=== PATIENT | male | born 1955 ===

== ENCOUNTER 2019-04-25 07:41 | Day surgery (SDC) | payer BC, SELFPAY ==
--- NOTE | 2019-04-25 07:06 | COLE_ITS ---
Date of service: 04/25/19 Time of Service: 09: Colonoscopy Report Date of procedure: 04/25/19 Pre-op diagnosis general: Colon Cancer Screening Post-op diagnosis procedure note: same (and small internal hemorrhoids) Procedure: Colonoscopy Surgeon: Trinh Walton Anesthesia proc note operative: other (General/ ASA 2/kiran Her CRNA) Estimated blood loss (mL): 0 Pathology: none sent Complications: None Disposition: same day Indications: Mr. Bennett is a pleasant 63 year old male who was seen in the office for a screening colonoscopy. He has no family history of colon cancer. He had one previous colonoscopy that was normal. Risks, benefits and complications have been reviewed. Complications include but are not limited to bleeding, pain, perforation, missed small lesion/polyp, sore throat, aspiration and adverse r eaction to the medications. Questions were entertained and answered to their satisfaction and they wished to proceed. No guarantees were given or implied. [place] Prep: Miralax/Dulcolax Procedure Start Time: : Procedure End Time: : Retraction Time: 14 Findings: Normal colon Small Grade 1 internal hemorrhoids Procedure Description: After informed consent was obtained the patient was taken to the procedure room and placed in a left decubitous position. Monitors were applied and a time out was done. The patients name, date of , procedure, allergies to medications and metal in their body was reviewed. The patient was then sedated. Once sedated and comfortable a rectal exam was done. External exam was normal. Internal exam revealed a normal sphincter tone and no palpable masses. The prostate felt smooth. The scope was then introduced and retro-flexed. Grade 1 internal hemorrhoids were identified. There were no polyps and no masses on retro-flexion. The scope was then advanced to the cecum without difficulty. The TI and appendiceal orifice were identified. The prep was good. The scope was then slowly retracted over 14 minutes back into the rectum. There were no polyps or diverticula. The scope was removed and the patient was woken up and taken back to Same day surgery in stable condition. The patient tolerated the procedure well and there were no immediate complica tions. Follow up: The patient should follow up in 10 years unless they develop changes in bowel habits or other new gastrointestinal complaints.
--- NOTE | 2019-04-25 07:13 | PDOC.DSDIS_ITS ---
Discharge Plan Disposition Patient Disposition: HOME Condition: Good Discharge Details Reason For Visit: Colon Cancer Screening Attending Provider: Trinh Walton Primary Care Provider: Puja Daniels Home Meds and New Rx's Prescriptions: Continued One-Per-Day [place]-3 1 EACH capsule,delayed release(DR/EC) 1 ea PO DAILY PRNRF: 0 cholecalciferol (vitamin D3) [Vitamin D3] 2,000 UNIT capsule 2,000 unit PO DAILY RF: 0 Discontinued polyethylene glycol 3350 17 gram/dose powder 238 g PO ONCE Qty: 238 RF: 0 bisacodyl [Dulcolax (bisacodyl)] 5 mg tablet,delayed release (DR/EC) 5 mg PO ONCE Qty: 4 RF: 0 Discharge Instructions Instructions: Colonoscopy (GEN), Hemorrhoids (ED) Additional Instructions: Findings: Small hemorrhoids Follow up: 10 years Please call if you develop: fevers >101.5 Nausea or Vomiting Abdominal pain that is not transient DAY SURGERY UNIT POST COLONOSCOPY INSTRUCTIONS 1. Because there will be medication in your system for the next 24 hours, you may feel a little sleepy. Your coordination will be affected. Therefore: a. Do not drive or operate dangerous equipment for 24 hours. b. Do not drink alcohol beverages for 24 hours (not even beer). c. Plan to go home and rest for the day. 2. Generally there are no restrictions on your activity after a day or so has gone by, but you may feel a bit fatigued for a few days. 3 After you arrive home you may have a light meal and return to a normal diet as you can tolerate it without feeling sick to your stomach. 4. After surgery, you may feel pain or discomfort. This should be only transient, but if it persists please contact your doctor. 5. If there are any questions regarding the findings of your procedure, please feel free to contact your doctor. 6. If you are unable to contact your doctor with a problem, contact the hospital at [phone]. 7. Continue all your regular medications unless directed otherwise. I understand the above instructions and have no questions. Signature of Patient or Responsible Adult Escort Date/Time Name of Responsible Adult Escort Signature of Nurse Date/Time Activity:: Activity as Tolerated Diet:: As Tolerated Discharge Orders Discharge Orders: Discharge Order (Routine); Ordered 04/25/19 Ordered By: Trinh Walton DS: Diagnosis Discharge Diagnosis (1) History of colonoscopy: Status: Chronic
[2019-04-25 08:20] VITALS: BP 118/84; PULSE 78; RESP 16; TEMP 36.3; O2SAT 99
[2019-04-25] MEDS: Lactated Ringers 1,000 ML 80 ML IV (08:46)
[2019-04-25] MEDS: Lidocaine 2% Pres-Free 5 ML VIAL (09:00)
[2019-04-25] MEDS: PROPOFOL 500 MG/50 ML BTL 41.4 MG (09:00)
[2019-04-25 09:40] VITALS: PULSE 64; RESP 20; O2SAT 95
[2019-04-25 09:53] VITALS: BP 102/62; PULSE 63; RESP 18; TEMP 36.2; O2SAT 98
== END 2019-04-25 11:35 | disposition home or self-care (01) ==
PROVIDERS: PCP Student in an Organized Health Care Education/Training Program; Visit Provider Surgery
PROC: 0DJD8ZZ Inspection of Lower Intestinal Tract, Via Natural or Artificial Opening Endoscopic (ICD-10-PCS; CPT 45378; principal; 2019-04-25 09:00)
DX: Z12.11 Encounter for screening for malignant neoplasm of colon (principal); K64.0 First degree hemorrhoids
CPT/HCPCS: 45378

== ENCOUNTER 2020-02-13 03:31 | Outpatient (CLI) | payer BC, SELFPAY ==
[2020-02-13 08:23] LABS: ALT 31 U/L (16-63); AST 18 U/L (15-37); Albumin 3.7 g/dL (3.4-5.0); Alkaline Phosphatase 114 U/L (46-116); Anion Gap 6.7 mmol/L (3-11); BUN 18 mg/dL (7-18); Bilirubin, Total 0.7 mg/dL (0.2-1.0); CO2 29.3 mmol/L (21.0-32.0); CREATININE 1.08 mg/dL (0.70-1.30); Calcium 8.7 mg/dL (8.5-10.1); Calculated LDL 106 mg/dL (<100); Chloride 107 mmol/L (98-107); Cholesterol 180 mg/dL (<200); Glucose 95 mg/dL (74-106); HDL Cholesterol 58 mg/dL (40-60); Potassium 4.4 mmol/L (3.5-5.1); Sodium 143 mmol/L (136-145); Total Protein 6.6 g/dL (6.4-8.2); Triglyceride 80 mg/dL (<150)
== END 2020-02-13 03:51 ==
PROVIDERS: PCP Student in an Organized Health Care Education/Training Program; Visit Provider Student in an Organized Health Care Education/Training Program
DX: Z13.220 Encounter for screening for lipoid disorders (principal); Z82.49 Family history of ischemic heart disease and other diseases of the circulatory system; G43.109 Migraine with aura, not intractable, without status migrainosus; R03.0 Elevated blood-pressure reading, without diagnosis of hypertension; Z00.00 Encounter for general adult medical examination without abnormal findings; E86.0 Dehydration
CPT/HCPCS: 36415; 80053; 80061

== ENCOUNTER 2020-06-04 19:54 | Outpatient (REF) | payer BC, SELFPAY ==
[2020-06-05 17:59] LABS: PSA, Screening 1.7 ng/mL (0.0-4.5)
== END 2020-06-04 20:14 ==
LOC: LBN 19:54
PROVIDERS: PCP Student in an Organized Health Care Education/Training Program; Visit Provider Urology
DX: Z12.5 Encounter for screening for malignant neoplasm of prostate (principal)
CPT/HCPCS: 84153

== ENCOUNTER 2021-06-17 03:36 | Outpatient (CLI) | payer BC, SELFPAY ==
[2021-06-17 22:32] LABS: PSA, Screening 1.8 ng/mL (0.0-4.5)
== END 2021-06-17 03:37 | disposition home or self-care (01) ==
LOC: LBO 03:36
PROVIDERS: PCP Student in an Organized Health Care Education/Training Program; Visit Provider Urology
DX: Z12.5 Encounter for screening for malignant neoplasm of prostate (principal)
CPT/HCPCS: 36415; 84153

== ENCOUNTER 2022-06-11 02:29 | Outpatient (CLI) | payer BC, SELFPAY ==
[2022-06-11 16:13] LABS: BUN 23 mg/dL (7-18); CREATININE 1.1 mg/dL (0.70-1.30); Calcium 8.4 mg/dL (8.5-10.1); Calculated LDL 84 mg/dL (<100); Chloride 106 mmol/L (98-107); Cholesterol 165 mg/dL (<200); Estimated GFR 74.96 (mL/min/1.73m2); Glucose 110 mg/dL (74-106); HDL Cholesterol 48 mg/dL (40-60); Potassium 3.8 mmol/L (3.5-5.1); Sodium 139 mmol/L (136-145); Triglyceride 168 mg/dL (<150)
[2022-06-11 22:33] LABS: PSA, Screening 1.7 ng/mL (<=4.5)
== END 2022-06-11 02:30 | disposition home or self-care (01) ==
LOC: LBO 02:29
PROVIDERS: Urology; PCP Student in an Organized Health Care Education/Training Program; Visit Provider Student in an Organized Health Care Education/Training Program
DX: N40.1 Benign prostatic hyperplasia with lower urinary tract symptoms (principal); Z13.1 Encounter for screening for diabetes mellitus; Z13.220 Encounter for screening for lipoid disorders; Z12.5 Encounter for screening for malignant neoplasm of prostate
CPT/HCPCS: 36415; 80048; 80061; 84153

== ENCOUNTER 2022-09-16 09:37 | Outpatient (CLI) | payer BC, SELFPAY ==
[2022-09-21 13:27] LABS: Testosterone, Total 517 ng/dL (240-950)
== END 2022-09-16 09:38 | disposition home or self-care (01) ==
LOC: LBO 09:37
PROVIDERS: PCP Student in an Organized Health Care Education/Training Program; Visit Provider Urology
DX: N40.1 Benign prostatic hyperplasia with lower urinary tract symptoms (principal); N50.0 Atrophy of testis
CPT/HCPCS: 36415; 84403

== ENCOUNTER 2023-06-02 02:53 | Outpatient (CLI) | payer BC, SELFPAY ==
[2023-06-02 15:10] LABS: Anion Gap 9.6 mmol/L (3-11); BUN 16 mg/dL (7-18); CO2 22.4 mmol/L (21.0-32.0); CREATININE 1.1 mg/dL (0.70-1.30); Calcium 8.8 mg/dL (8.5-10.1); Calculated LDL 97 mg/dL (<100); Chloride 105 mmol/L (98-107); Cholesterol 173 mg/dL (<200); Glucose 95 mg/dL (74-106); HDL Cholesterol 58 mg/dL (40-60); Potassium 3.7 mmol/L (3.5-5.1); Sodium 137 mmol/L (136-145); Triglyceride 90 mg/dL (<150)
[2023-06-02 17:04] LABS: Vitamin D 25 Total 53.1 ng/mL (30-100)
== END 2023-06-02 02:54 | disposition home or self-care (01) ==
LOC: LBO 02:53
PROVIDERS: PCP Student in an Organized Health Care Education/Training Program; Visit Provider Student in an Organized Health Care Education/Training Program
DX: E55.9 Vitamin D deficiency, unspecified (principal); E86.0 Dehydration; Z13.220 Encounter for screening for lipoid disorders
CPT/HCPCS: 36415; 80048; 80061; 82306

== ENCOUNTER 2023-06-08 18:31 | Outpatient (CLI) | payer BC, SELFPAY ==
[2023-06-08 23:06] LABS: PSA, Diagnostic 1.8 ng/mL (<=4.5)
== END 2023-06-08 18:32 | disposition home or self-care (01) ==
LOC: LBO 18:31
PROVIDERS: PCP Student in an Organized Health Care Education/Training Program; Visit Provider Urology
DX: N40.1 Benign prostatic hyperplasia with lower urinary tract symptoms (principal)
CPT/HCPCS: 36415; 84153

== ENCOUNTER 2024-04-26 00:56 | Outpatient (CLI) | payer BC, SELFPAY ==
--- NOTE | 2024-04-26 08:30 | DI.RAD_ITS ---
Exam(s) XR THUMB LT EXAM: XR THUMB LT CLINICAL HISTORY: eval joint space, bony pathology,bilat thumb pain,gamekeepers thumb,m79.645. TECHNIQUE: 2D digital imaging was performed. Three views. COMPARISON: None. FINDINGS: BONES: No acute fracture is present. No bony destructive lesion is seen. JOINTS: No dislocation present. 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 Per iarticular spurring. Subchondral cyst formation. Mild degenerative changes at the interphalangeal j oint and metacarpophalangeal joint. SOFT TISSUE: Normal. 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 DATA REPOSITORY: RADIATION DOSE DELIVERED:
--- NOTE | 2024-04-26 08:30 | DI.RAD_ITS ---
Exam(s) XR THUMB RT EXAM: XR THUMB RT CLINICAL HISTORY: eval joint space, bony pathology,bilat thumb pain, gamekeepers thumb,m79.64. TECHNIQUE: 2D digital imaging was performed. Three views. COMPARISON: CR XR THUMB LT from 04/26/2024 FINDINGS: BONES: No acute fracture is present. No bony destructive lesion is seen. JOINTS: No dislocation present. Moderate degenerative changes at the 1st carpal metacarpal joint. M ild degenerative changes at the metacarpal phalangeal joint and interphalangeal joint. SOFT TISSUE: Normal. IMPRESSION: Degenerative changes. DATA REPOSITORY: RADIATION DOSE DELIVERED:
--- NOTE | 2024-04-26 08:30 | DI.US_ITS ---
Exam(s) US SOFT TISS EXTREMITY/GROIN EXAM: US SOFT TISS EXTREMITY/GROIN CLINICAL HISTORY: possible acute hernia - with Hx hernia repair,k40.90,z98.890. TECHNIQUE: Ultrasound was performed using standard protocol. COMPARISON: US US SOFT TISS EXTREMITY/GROIN from 04/14/2024 FINDINGS: Sonographic assessment utilizing grayscale and color Doppler imaging was performed and targeted to th e area of clinical concern. There is an area of shadowing which could represent mash related to prior hernia repair. No definite recurrence hernia. IMPRESSION: No definite current heart recurrence hernia. The area is difficult to evaluate due to shadowing. A CT could be performed for further evaluation if indicated. DATA REPOSITORY:
== END 2024-04-26 01:16 ==
LOC: DI 00:57
PROVIDERS: PCP Student in an Organized Health Care Education/Training Program; Visit Provider Student in an Organized Health Care Education/Training Program
DX: S63.642A Sprain of metacarpophalangeal joint of left thumb, initial encounter; S63.641A Sprain of metacarpophalangeal joint of right thumb, initial encounter; X58.XXXA Exposure to other specified factors, initial encounter
CPT/HCPCS: 76882; 73140

== ENCOUNTER 2024-05-22 03:31 | Outpatient (CLI) | payer BC, SELFPAY ==
--- NOTE | 2024-05-22 09:00 | DI.RAD_ITS ---
Exam(s) XR FINGER LT RING EXAM: XR FINGER LT RING CLINICAL HISTORY: evaluate for bony path before ORTHO, LT TRIGGER FINGER, M65.30, Z87.39. TECHNIQUE: 2D digital imaging was performed. Three views. COMPARISON: None. FINDINGS: BONES: No acute fracture is present. No bony destructive lesion is seen. Incidental bone island prox imal phalanx of ring finger. JOINTS: No dislocation present. Severe degenerative changes at 1st carpal metacarpal joint. Minimal degenerative changes of the interphalangeal joints of the ring finger. SOFT TISSUE: Normal. IMPRESSION: No acute abnormality. DATA REPOSITORY: RADIATION DOSE DELIVERED:
--- NOTE | 2024-05-22 09:00 | DI.RAD_ITS ---
Exam(s) XR FINGER RT MIDDLE EXAM: XR FINGER RT MIDDLE CLINICAL HISTORY: evaluate for bony path before ORTHO, trigger finger rt hand, M65.30, Z87.39. TECHNIQUE: 2D digital imaging was performed. Three views. COMPARISON: CR XR FINGER LT RING from 05/22/2024 FINDINGS: BONES: No acute fracture is present. No bony destructive lesion is seen. JOINTS: No dislocation present. Moderate degenerative changes at 1st carpal metacarpal joint. Mild degenerative changes at distal interphalangeal joint of the middle finger. SOFT TISSUE: Normal. IMPRESSION: Iqvf-yn-hzixdumv degenerative changes. DATA REPOSITORY: RADIATION DOSE DELIVERED:
== END 2024-05-22 03:51 ==
PROVIDERS: PCP Student in an Organized Health Care Education/Training Program; Visit Provider Student in an Organized Health Care Education/Training Program
DX: M18.0 Bilateral primary osteoarthritis of first carpometacarpal joints (principal); Z87.39 Personal history of other diseases of the musculoskeletal system and connective tissue
CPT/HCPCS: 73140

== ENCOUNTER 2024-06-08 01:19 | Outpatient (CLI) | payer BC, SELFPAY ==
--- NOTE | 2024-06-08 08:00 | DI.MRI_ITS ---
Exam(s) MR UPPER EXTREMITY LT WO EXAM: MR UPPER EXTREMITY LT WO CLINICAL HISTORY: eval joint space, lig/tendon,? tear,OA THUMB,GAMEKEEPERS THUMB,THUMB PAIN. TECHNIQUE: Multiplanar multisequence MRI was performed. COMPARISON: CR XR FINGER RT MIDDLE from 05/22/2024 CR XR FINGER LT RING from 05/22/2024 FINDINGS: Severe degenerative changes are noted at the 1st carpal metacarpal joint. There are multiple subcho ndral cysts on both sides of the joint. Marrow signal is otherwise unremarkable. No evidence of ligament or tendon tear. No joint effusion. Muscles and soft tissues are unremarkabl e. 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 No evidence of ulnar collateral lig ament injury at the 1st metacarpophalangeal joint. DATA REPOSITORY:
== END 2024-06-08 01:39 ==
LOC: DI 01:19
PROVIDERS: PCP Student in an Organized Health Care Education/Training Program; Visit Provider Student in an Organized Health Care Education/Training Program
DX: S63.642A Sprain of metacarpophalangeal joint of left thumb, initial encounter (principal); X58.XXXA Exposure to other specified factors, initial encounter
CPT/HCPCS: 73218

== ENCOUNTER 2024-11-10 00:54 | Outpatient (CLI) | payer BC, SELFPAY ==
[2024-11-10 12:31] LABS: BUN 17 mg/dL (7-18); CREATININE 1.2 mg/dL (0.70-1.30); Calcium 8.7 mg/dL (8.5-10.1); Calculated LDL 91 mg/dL (<100); Chloride 108 mmol/L (98-107); Cholesterol 188 mg/dL (<200); Estimated GFR 66.28 (mL/min/1.73m2); Glucose 99 mg/dL (74-106); HDL Cholesterol 56 mg/dL (>or=40); Potassium 4.4 mmol/L (3.5-5.1); Sodium 143 mmol/L (136-145); Triglyceride 208 mg/dL (<150)
[2024-11-10 18:25] LABS: PSA, Screening 1.7 ng/mL (<=4.5)
== END 2024-11-10 00:55 | disposition home or self-care (01) ==
LOC: LOS 00:54
PROVIDERS: PCP Family Medicine; Visit Provider Family Medicine
DX: Z13.1 Encounter for screening for diabetes mellitus (principal); Z12.5 Encounter for screening for malignant neoplasm of prostate; Z13.6 Encounter for screening for cardiovascular disorders
CPT/HCPCS: 36415; 80048; 80061; 84153

== ENCOUNTER 2024-11-24 13:29 | Outpatient (CLI) | payer BC, SELFPAY ==
--- NOTE | 2024-11-24 13:15 | RT.EKG_ITS ---
APPROVED REPORT Exam: Resting ECG Reason for Exam: Atrial fibrulation Patient Location: O HR:71 bpm ECG Measurements Heart Rate 71 AXIS SD [id number] P [id number] QRSd 85 QRS -23 QT 402 T -7 QTc 437 Conclusion Atrial fibrillation...V-rate 61- 82, irreg A-activity Poor R wave progression Borderline low voltage, extremity leads...all extremity leads <0.6mV
== END 2024-11-24 13:30 | disposition home or self-care (01) ==
LOC: DI.CM 13:30
PROVIDERS: PCP Family Medicine; Visit Provider Family Medicine
DX: I48.91 Unspecified atrial fibrillation (principal)
CPT/HCPCS: 93010

== ENCOUNTER 2024-11-30 13:28 | Outpatient (RCR) | payer BC, SELFPAY | END 2024-12-04 23:59 | disposition home or self-care (01) | LOC: CARDOPNVT 13:28 | PROVIDERS: PCP Family Medicine; Visit Provider Internal Medicine Cardiovascular Disease | DX: I48.91 Unspecified atrial fibrillation (principal) | CPT/HCPCS: 93225; 93226 ==

== ENCOUNTER 2025-01-02 00:15 | Outpatient (CLI) | payer BC, SELFPAY ==
--- NOTE | 2025-01-02 07:30 | DI.US_ITS ---
APPROVED REPORT EXAM: Comprehensive 2D, Doppler, and color-flow Echocardiogram Patient Location: Out-Patient Substation Manager: Kiko Kaur RDCS (AE) Indications: Afib seen on preop monitor Other Information Study Quality: Adequate Conclusion Normal left ventricular wall thickness and chamber size. Ejection fraction is 60%. Wall motion is n ormal Normal right ventricular size and function Left atrium is severely dilated. Right atrium is mildly dilated Trileaflet aortic valve with mild regurgitation Normal mitral valve with mild regurgitation Estimated right ventricular systolic pressure is 31 mmHg Wall motion Left Ventricle The left ventricle is normal size. The left ventricular systolic function is normal. The left ventric ular ejection fraction is within the normal range. There is normal left ventricular wall thickness. T here is normal LV segmental wall motion. There is no ventricular septal defect visualized. LVEF is 60 %. Right Ventricle The right ventricle is normal size. The right ventricular systolic function is normal. Atria Left atrium is severely dilated. Right atrium is mildly dilated. The interatrial septum is intact wit h no evidence for an atrial septal defect. Aortic Valve The aortic valve is normal in structure. Aortic valve is trileaflet. There is no aortic valvular sten osis. Mild aortic regurgitation. Mitral Valve The mitral valve is normal in structure. No evidence of mitral valve stenosis. Mild mitral regurgitat ion. Tricuspid Valve The tricuspid valve is normal in structure. There is no tricuspid valve stenosis. Trace to mild tricu spid regurgitation. The RVSP is 31.5 mmHg. Pulmonic Valve The pulmonary valve is normal in structure. There is no pulmonic valvular stenosis. There is no pulmo zhou valvular regurgitation. Great Vessels The aortic root is normal in size. The ascending aorta is normal in size. Aortic arch is normal in ca liber. IVC is normal in size and collapses >50% with inspiration. Pericardium There is no pericardial effusion. 2D Dimensions IVSD d PLAX 0.78 cm M: 0.6-1.2 Ao Root d 2.92 cm M: 3.1 - 3.7 LVPW d PLAX 0.81 cm M: 0.6 - 1.2 Ao Asc Diam d 3.14 cm M: 2.6 - 3.4 LVID d PLAX 4.58 cm M: 4.2 - 5.8 LVDs 3.13 cm M: 2.5 - 4.0 LV EF Teichholz 59.8 % FS 31.72 % LV EDV (Teich) 96.6 mL LV ESV (Teich) 38.8 mL Stroke Vol Index (Teich) 27.50 M-Mode TAPSE 1.68 cm (M/F) >1.7 Auto EF LV EDV A4C 81.0 mL LV EDV A2C LV EDV BP LV ESV A4C 32.7 mL LV ESV A2C LV ESV BP LVEF(%) A4C 59.7 % LVEF(%) A2C LVEF(%) BP LV SV A4C 48.3 ml LV SV A2C LV SV BP LV CO A4C 3.1 L/min LV CO A2C LV CO BP HR A4C 63.61 BPM HR A2C LV EDV Index (BP) LV Volumes - Method of Disks ([place]'s) Single Plane 2D LV Volumes Biplane 2D LV Volumes LV EDV A2C 72.4 mL LV EDV BP Index LV ESV A2C 28.7 mL SV BP LVEF(%) A2C 60.4 % SV Index LA Volume LA Length A4C 7.0 cm LA Length A2C 7.0 cm LA Area A4C s 29.45 cm2 LA Area A2C s 27.95 cm2 LA Vol A4C A-L 104.50 mL LA Vol A2C A-L 95.10 mL LA Vol Biplane A-L 100.2 mL LA Vol/BSA A4C A-L LA Vol/BSA A2C A-L LA Vol/BSA BP A-L 47.7 mL/m2 LA Vol A4C MOD 99.1 mL LA Vol A2C MOD 88.6 mL LA Vol BP MOD 93.4 mL RA Volume RA Area A4C 16.0 cm2 RA ESV A4C (A-L) 36.2mL RA Vol/BSA A4C A-L RA Length A4C 6.0 cm RA ESV A4C (MOD) 37.3mL LV Diastology MV E' medial 0.116 (>0.07 m/s) MV E Vmax 0.96 (0.4-1.3 m/s) MV E/E' MED 8.34 (<14) MV E' lateral 0.141 (>0.1 m/s) MV E/E' LAT 6.84 (<14) MV E' Average 0.128 m/s MV E/E'(average) 7.52 Aortic Valve AoV Vmax 1.48 m/s LVOT Vmax 0.98 m/s AoV Peak Grad 8.7 mmHg LVOT Peak Grad 3.9 mmHg AoV Area (Vmax) 2.18 cm2 LVOT VTI 0.188 m AoV VTI 0.279 m LVOT Mean Grad 1.9 mmHg AoV Mean Mathew. 0.99 m/s LVOT SV 61.43 mL AoV Mean Grad 4.5 mmHg LVOT Diam s 2.00 cm AoV Area (VTI) 2.20 cm2 AV Regurg Peak Gr. 8.72 mmHg Velocity Ratio 0.66 Mitral Valve MV DT 130 (160-240 msec) Pulmonary Valve PV Vmax 1.12 (0.5-1.5 m/s) RVOT Vmax 0.52 m/s PV Peak Grad 5.0 mmHg RVOT Peak Gr. 1.1 mmHg PV Mean Mathew 0.81 m/s RVOT VTI 0.112 m PV Mean Grad 2.9 mmHg RVOT Mean Gr. 0.6 mmHg Tricuspid Valve RA Pressure 3.00 mmHg TR Vmax 2.67 m/s TV S' 0.12 m/s TR Peak Grad 28.5 mmHg RVSP (TR) 31.5 mmHg
== END 2025-01-02 00:35 ==
LOC: DI 00:15
PROVIDERS: PCP Family Medicine; Visit Provider Internal Medicine Cardiovascular Disease
DX: I48.91 Unspecified atrial fibrillation (principal); I35.0 Nonrheumatic aortic (valve) stenosis
CPT/HCPCS: 93306

== ENCOUNTER 2025-01-11 00:12 | Outpatient (CLI) | payer BC, SELFPAY ==
--- NOTE | 2025-01-11 06:00 | ETT_ITS ---
APPROVED REPORT Exam: Exercise Treadmill Patient Location: Out-Patient Room/Bed: Ordering Provider:DULCE COLES, Contact Number: [phone] BMI: 28.40 Baseline Rhythm: Atrial Fibrillation Comment: Occasional PVC's Indications: Atrial fibrillation, HTN, Medical History Medical History: HTN, afib (dx. 11/28), BPH, peyronies disease Cardiac Medications: Losartan, tadalafil Allergies: NKA Cardiac Risk Factors: Family hx, HTN Previous Cardiac Procedures: None Pretest Chest Pain Characteristics: None Exercise History: Physically active Physical Disabilities: None Lung Sounds: Clear to auscultation Heart Sounds: Irregular Stress Test Details Test: Exercise stress testing was performed using a Kofi protocol. Rest Stress HR Resting HR Supine: 62 bpm Max Heart Rate (APMHR): 153 bpm Resting HR Standin bpm Target HR (85% APMHR): 130 bpm Max HR Achieved: 158 bpm % of APMHR: 103 Recovery HR: 73 bpm HR response to stress: Normal HR response to stress BP Resting BP Supine: 132/82 mmHg Resting BP Standin/90 mmHg Max BP: 194/90 mmHg Recovery BP: 138/80 mmHg BP response to stress: Normal blood pressure response to stress. ECG Resting ECG: Atrial Fibrillation Ectopy: Occasional PVC's Stress ECG: Atrial Fibrillation ST Change: No significant ST segment changes noted Arrhythmia: Occasional PVC's, bigeminy, couplets Recovery ECG: Atrial Fibrillation Recovery ST Change: No significant ST segment changes noted Recovery Arrhythmia: Rare PVC's Clinical Reason for Termination: 100% Target HR Achieved Stress Symptoms: None Exercise duration: 06 min34 sec Highest Stage Reached: Stage 3: 3.4 mph at 14% grade. Exercise capacity: 7.91 METs Angina Score: None Da Silva Treadmill Score: 6.6 Rate Pressure Product: [id number] Stress ECG Conclusion 1. Resting electrocardiogram showed atrial fibrillation, right axis, low voltage, poor R wave progres antoinette 2. Patient exercised on the Kofi protocol and completed a workload of 8 METS 3. Normal heart rate and blood pressure response to exercise. The patient achieved 100% of predicted heart rate for age 4. There was no electrocardiographic evidence of myocardial ischemia 5. There were occasional premature ventricular contractions [place] Silva Treadmill Score is 6.6 which is Low risk. Stress Test Summary STAGE Time (mins) Speed (mph) Grade (%) HR BP SpO2 SYMPTOMS METS Supine 62 132/82 98 Standing 73 134/90 1 3 1.7 10 125 160/90 4.5 2 6 2.5 12 133 7 3 9 3.4 14 158 10 1 min recovery 103 194/90 98% 3 min recovery 79 164/84 6 min recovery 73 138/80
== END 2025-01-11 00:32 ==
LOC: DI 00:12
PROVIDERS: PCP Family Medicine; Visit Provider Internal Medicine Cardiovascular Disease
DX: I48.91 Unspecified atrial fibrillation (principal); I10 Essential (primary) hypertension; I08.0 Rheumatic disorders of both mitral and aortic valves
CPT/HCPCS: 93017

== ENCOUNTER 2025-01-15 13:21 | Outpatient (CLI) | payer BC, SELFPAY ==
[2025-01-15 14:41] LABS: Anion Gap 4.9 mmol/L (3-11); BUN 22 mg/dL (7-18); CO2 27.1 mmol/L (21.0-32.0); CREATININE 1.3 mg/dL (0.70-1.30); Calcium 8.8 mg/dL (8.5-10.1); Chloride 107 mmol/L (98-107); Estimated GFR 60.21 (mL/min/1.73m2); Glucose 115 mg/dL (74-106); Potassium 4.2 mmol/L (3.5-5.1); Sodium 139 mmol/L (136-145)
== END 2025-01-15 13:22 | disposition home or self-care (01) ==
LOC: LBO 13:22
PROVIDERS: PCP Family Medicine; Visit Provider Family Medicine
DX: I10 Essential (primary) hypertension (principal)
CPT/HCPCS: 36415; 80048